=== PATIENT | male | born 1995 | race Caucasian/White ===

== ENCOUNTER 2025-07-09 09:38 | Emergency (ER) | payer OTHER, SELFPAY ==
--- NOTE | ~2025-07-09 | XR_ITS ---
EXAMINATION: XR ankle LT min 3V, XR foot LT min 3V DATE: 07/09/2025 10:25 INDICATION: Left foot and ankle injury with swelling TECHNIQUE: 1. Anteroposterior, mortise, additional oblique and lateral view of the left ankle were obtained. 2. Dorsoplantar, two oblique and lateral views of the left foot were obtained. COMPARISON: None. FINDINGS: Alignment of the left foot and ankle is normal. No fracture. Joint spaces are well maintained through out the foot and ankle. No ankle joint effusion. Soft tissue swelling about the lateral malleolus. IMPRESSION: 1. Soft tissue swelling about the lateral malleolus. No osseous abnormality at the left foot or ankle . Reviewed, dictated and finalized at location A. IMPRESSION: 1. Soft tissue swelling about the lateral malleolus. No osseous abnormality at the left foot or ankle.
--- OUTSIDE RECORDS SUMMARY | 2025-07-09 09:40 | XMS_ITS | Clinical Summary ---
Author Organization [facility] Address [address] [address] Phone Care Team Providers Care Dry Roaster Name Role Phone Provider, None Primary Care Provider Unavailabl e Allergies No known active allergies Medications indomethacin (INDOCIN) 50 MG Capsule Take 1 Cap by mouth 3 times daily. 30 Cap 1 07/24/2020 Active Active Problems No known active problems Social History Tobacco Use Types Packs/Day Years Used Date Smoking Tobacco: Every Day Smokeless Tobacco: Never Tobacco Cessation:Ready to Q uit: No; Counseling Given: No Sex and Gender Information Value Date Recorded Sex Assigned at Not on file Legal Sex Male 11:40 PM CDT Gender Identity Not on file Sexual Orientation Not on file Last Filed Vital Signs Vital Sign Reading Time Taken Comments Blood Pressure 125/64 07/24/2020 11:48 AM CDT Pulse 64 07/24/2020 11:48 AM CDT Temperature 36.7 C (98.1 F) 07/24/2020 11:48 AM CDT Respiratory Rate 18 07/24/2020 11:4 8 AM CDT Oxygen Saturation 98% 07/24/2020 11: 48 AM CDT Inhaled Oxygen Concentration - - Weight 91.5 kg (201 lb 12.8 oz) 020 11:48 AM CDT Height 182.9 cm (6') 07/24/2020 11:48 AM CDT Body Mass Index 27.37 07/24/2020 11:48 AM CDT Plan of Treatment Health Maintenance Due Date Last Done Comments Hepatitis C Virus (HCV) Screening 1995 TdaP Immunization 1995 Hepatitis B Immunization (2 of 3 - 3-dose series) 1995 1995 Human Papillomavirus (HPV) Immunization (1 - 3-dose SCDM series) 2022 SARS-COV-2 Immunization (1 - 2023-25 season) 2024 Influenza Immunization (#1) 2025 Respiratory Syncytial Virus (RSV) Immunization (Adult) (1 - 1-dose 75+ series) 2070 DTaP/Tdap/Td Immunization Discontinued 1995 Meningococcal Immunization (ACWY) Aged Out No longer eligible based on patient's age to complete this topic Pneumococcal Immunization Combined Aged Out No longer eligible based on patient's age to complete this topic Rotavirus Immunization Aged Out No lo nger eligible based on patient's age to complete this topic Insurance Care Teams Dry Roaster Relationship Specialty Start Date End Date Provider, None [place] PCP - General 07/24/20
--- OUTSIDE RECORDS SUMMARY | 2025-07-09 09:40 | XMS_ITS | Clinical Summary ---
Author Organization [facility] Address [address] [place] [address] Care Team Providers Care Information Systems Professor Name Role Phone Unavailable Primary Care Provider Unavailabl e Source Comments [facility],non-owned Affiliates and Associated Physician Practices is amultiple site organization consisting of ambulatory clinics and hospital sitesin [place], [place], [place] and [place]. This disclosure is being madepursuant to the Care Everywhere program and may not contain all information available regarding this patient. Last updated 18.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 Gender Identity Not on file Sexual Orientation Not on file Last Filed Vital Signs Vital Sign Reading Time Taken Comments Blood Pressure 136/73 04/04/2017 1:30 PM CDT Pulse 71 04/04/2017 1:30 PM CDT Temperature 36.8 C (98.3 F) 04/04/2017 9:43 AM CDT Respiratory Rate 18 04/04/2017 9:43 AM CDT Oxygen Saturation 100% 04/04/2017 1:30 PM CDT Inhaled Oxygen Concentration - - Weight 86.2 kg (190 lb) 04/04/2017 9:43 AM CDT Height 182.9 cm (6') 04/04/2017 9:43 AM CDT Body Mass Index 25.77 04/04/2017 9:43 AM CDT Plan of Treatment Health Maintenance Due Date Last Done Comments HIV SCREENING 2010 HEPATITIS C SCREENING 07/03/2013 DTAP/TDAP/TD VACCINES (1 - Tdap) 2014 HEPATITIS B VACCINE (1 of 3 - 19+ 3-dose series) 2014 HPV VACCINE (1 - 3-dose SCDM series) 2022 COVID-19 VACCINE ( - 2023-2 5 season) 2024 DEPRESSION SCREENING 12/01/2024 INFLUENZA VACCINE (#1) 2025 ZOSTER VACCINE (1 of 2) 2045 HIB VACCINE Aged Out No longer eligi ble based on patient's age to complete this topic MENINGOCOCCAL (Group B) VACC INE SHARED DECISION-MAKING Aged Out No longer eligibl e based on patient's age to complete this topic MENINGOCOCCAL GROUPS A/C/Y/W VACCINE Aged Out No longer eligible b ased on patient's age to complete this topic PNEUMOCOCCAL VACCINE Aged Out No long er eligible based on patient's age to complete this topic
[2025-07-09 09:48] VITALS: BP 117/69; PULSE 76; RESP 16; TEMP 36.8; O2SAT 98
--- NOTE | 2025-07-09 10:23 | ED.GENADULT ---
HPI - General Adult General Chief complaint: Extremity Injury, Lower Stated complaint: L foot injury Time Seen by Provider: 07/09/25 10:04 History of Present Illness HPI narrative: 30-year-old male presents to the emergency department for evaluation for left foot and ankle pain. Patient reports last night he did a back flip in celebration his birthday and patient had pain and has left foot and ankle. Patient was able to ambulate on the foot and ankle last night but pain worsened this morning. Patient denies any proximal tib-fib pain and patient states he did state the landing and denies striking his head denies any loss of consciousness. Related Data Allergies Allergy/AdvReac Type Severity Reaction Status Date / Time No Known Allergies Allergy Unknown Verified 07/09/25 09:53 Review of Systems Review of Systems: All systems reviewed & are unremarkable except as noted in HPI and below Exam Narrative: APPEARANCE: Well appearing, no pain, no distress, well-nourished. HEAD: normocephalic, atraumatic. EYES: PERRLA/EOMI, conjunctivae clear. NOSE: Normal no drainage EARS:TMS clear with good light reflex. THROAT: Pharynx clear, no exudate. NECK: Supple. No adenopathy, no masses. RESPIRATORY: Airway patent, respirations nonlabored. Clear to auscultation bilaterally, no rales, rhonchi, wheezing. CARDIOVASCULAR: Regular rate and rhythm without murmurs rubs or gallops. ABDOMINAL: Soft, nontender, nondistended, normal bowel sounds MUSCULOSKELETAL: Tenderness to left foot and ankle, no proximal tib-fib tenderness to palpation NEURO: Alert. Cranial nerves II through XII intact. Good gait. Good coordination SKIN: Warm, dry. Normal Color Course Vital Signs Vital signs: Vital Signs Temperature 98.2 F 07/09/25 09:48 Pulse Rate 76 07/09/25 09:48 Respiratory Rate 16 07/09/25 09:48 Blood Pressure 117/69 07/09/25 09:48 Pulse Oximetry 98 07/09/25 09:48 Oxygen Delivery Room Air 07/09/25 09:48 Temperature 98.2 F 07/09/25 09:48 Pulse Rate 76 07/09/25 09:48 Respiratory Rate 16 07/09/25 09:48 Blood Pressure 117/69 07/09/25 09:48 Pulse Oximetry 98 07/09/25 09:48 Oxygen Delivery Room Air 07/09/25 09:48 Medical Decision Making MDM Narrative Medical decision making narrative: 30-year-old male present to the emergency department for left foot and ankle pain. Patient did a back flip yesterday. The landing but did injure his foot and ankle. X-rays were negative for acute fracture dislocation. Patient has no proximal tib-fib tenderness to palpation. Patient states he was able to ambulate on the ankle immediately after the incident but pain worsened. This along with negatives films does suggest more of an ankle sprain/strain than a fracture. Patient was provided [place] wrap and crutches for limited weight-bearing. Patient was advised to take Tylenol and ibuprofen and is also being provided Flexeril for muscle spasm. All questions concerns were addressed and patient was comfortable of fluid discharge and close follow-up. Differential Diagnosis Differential Diagnosis: Ankle fracture, foot fracture, ankle dislocation, foot abnormality, foot sprain, ankle strain Vital Signs Vital Signs: Vital Signs Temperature 98.2 F 07/09/25 09:48 Pulse Rate 76 07/09/25 09:48 Respiratory Rate 16 07/09/25 09:48 Blood Pressure 117/69 07/09/25 09:48 Pulse Oximetry 98 07/09/25 09:48 Oxygen Delivery Room Air 07/09/25 09:48 Temperature 98.2 F 07/09/25 09:48 Pulse Rate 76 07/09/25 09:48 Respiratory Rate 16 07/09/25 09:48 Blood Pressure 117/69 07/09/25 09:48 Pulse Oximetry 98 07/09/25 09:48 Oxygen Delivery Room Air 07/09/25 09:48 Imaging Data Radiologist's impression: Impressions Ankle X-Ray 07/09/25 10:27 IMPRESSION: 1. Soft tissue swelling about the lateral malleolus. No osseous abnormality at the left foot or ankle. Foot X-Ray 07/09/25 10:27 IMPRESSION: 1. Soft tissue swelling about the lateral malleolus. No osseous abnormality at the left foot or ankle. Discharge Plan Discharge Clinical Impression: Ankle sprain and strain Patient Disposition: Home Condition: Stable Instructions: Antibiotic Form, Crutch Instructions (ED), Ankle Strain (ED) Additional Instructions: Tylenol and ibuprofen for pain control. [place] wrap for comfort. Crutches for limited weight-bearing for the next 3-5 days. Have close follow-up with your primary care physician. If you have any worsening symptoms then please call or return to the emergency department. Patient Language: Portuguese Follow-up/Referrals: Muriel,MD Warner [Non-Staff] -
--- OUTSIDE RECORDS SUMMARY | 2025-07-09 10:30 | XMS_ITS | Clinical Summary ---
Author Organization [facility] Address [address] [place] [address] Care Team Providers Care Electric Track Switch Maintainer Name Role Phone Unavailable Primary Care Provider Unavailabl e Source Comments [facility] [employer],non-owned Affiliates and Associated Physician Practices is amultiple site organization consisting of ambulatory clinics and hospital sitesin [place], [place], [place] and [place]. This disclosure is being madepursuant to the Care Everywhere program and may not contain all information available regarding this patient. 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
--- OUTSIDE RECORDS SUMMARY | 2025-07-09 10:30 | XMS_ITS | Clinical Summary ---
Author Organization [facility] Address [address] [address] Phone Care Team Providers Care City Bailiff Name Role Phone Provider, None Primary Care [...] to complete this topic Insurance Care Teams City Bailiff Relationship Specialty Start Date End Date Provider, None [place] PCP - General 07/24/20
[2025-07-09] MEDS: CYCLOBENZAPRINE HCL 10 MG TABLET PO (11:31)
[2025-07-09 11:35] VITALS: BP 115/65; PULSE 70; RESP 16; O2SAT 98
== END 2025-07-09 11:37 | disposition home or self-care (01) ==
PROVIDERS: Emergency Provider Emergency Medicine
DX: S93.402A Sprain of unspecified ligament of left ankle, initial encounter (principal); S96.912A Strain of unspecified muscle and tendon at ankle and foot level, left foot, initial encounter; X58.XXXA Exposure to other specified factors, initial encounter
CPT/HCPCS: 73610; 73630; 99283; A9270